=== PATIENT | male | born 1965 | race African-American/Black ===

== ENCOUNTER 2019-05-15 10:49 | Inpatient (IN) | payer BC, OTHER ==
--- NOTE | 2019-05-15 11:22 | RAD ---
PORTABLE CHEST 1 VIEW: Date: 05/15/19 Time: 1104 hours HISTORY: Chest pain and shortness of breath. FINDINGS/IMPRESSION: Comparison made with exam of 03/25/11. The heart size is borderline. There is pulmonary vascular congestion. No lobar consolidation, pneumot horaces, or pleural effusions are seen. There are degenerative changes in the spine. POS: [facility]
[2019-05-15 11:28] LABS: #Basophils 0.1 thou/uL (0.0-0.2); #Lymphocytes 2.4 thou/uL (1.20-3.40); #Monocytes 0.8 thou/uL (0.11-0.59); #Neutrophils 7.1 thou/uL (1.40-6.50); %Basophils 0.7 % (0.0-1.0); %Eosinophils 0.4 % (0.0-10.0); %Lymphocytes 23.1 % (21.0-51.0); %Monocytes 7.7 % (0.0-10.0); %Neutrophils 68.1 % (42.0-75.0); Mean Corpuscular HGB CONC 31.2 g/dL (32.0-36.0); Mean Corpuscular Hemoglobin 27.7 pg (27.0-31.0); Mean Corpuscular Volume 88.8 fL (78.0-98.0); Platelet Count 169 thou/uL (130-400); RBC Distribution Width 16.4 % (11.5-14.5); Red Blood Cell (RBC) Count 5.05 mill/uL (4.70-6.10); White Blood Cell (WBC) Count 10.4 thou/uL (4.8-10.8)
[2019-05-15 11:59] LABS: ALT (SGPT) 22 U/L (8-55); AST (SGOT) 27 U/L (5-34); Albumin 4.1 g/dL (3.5-5.0); Alkaline Phosphatase 63 U/L (40-110); Anion Gap 16 mmol/L (10-20); BUN (Urea Nitrogen) 11 mg/dL (8.4-25.7); Bilirubin, Total 0.7 mg/dL (0.2-1.2); CK (CPK) 327 U/L (30-200); Calc. Creatinine Clearance 0 mL/min (70-130); Calcium 9.9 mg/dL (7.8-10.44); Carbon Dioxide 23 mmol/L (22-29); Chloride 102 mmol/L (98-107); Estimated GFR-MDRD 74; Globulin 4.1 g/dL (2.4-3.5); Glucose 191 mg/dL (70-105); Lipase 11 U/L (8-78); Potassium 4.8 mmol/L (3.5-5.1); Protein, Total 8.2 g/dL (6.0-8.3); Sodium 136 mmol/L (136-145)
[2019-05-15 12:05] LABS: CKMB 4.6 ng/mL (0-6.6)
[2019-05-15] MEDS ORDERED: ISOVUE-370 76%-LOCM 1 ML ONE (12:13)
--- NOTE | 2019-05-15 13:32 | ULT ---
VENOUS DOPPLER ULTRASOUND OF THE LEFT LOWER EXTREMITY: Date: 05/15/19 HISTORY: Left lower extremity edema. TECHNIQUE: Beebe scale ultrasound with color flow and spectral Doppler imaging of the deep venous system of the l eft lower extremity was performed. FINDINGS: There is absence of compression with some flow due to a nonocclusive intraluminal thrombus extending from the common femoral veins down to the mid posterior tibial vein and including the deep femoral ve in. IMPRESSION: Findings are positive for deep venous thrombosis in the left lower extremity. Findings reported to Dr. Can at 1234 hours. CODE CR. POS: [facility]
[2019-05-15] MEDS ORDERED: Enoxaparin Sodium 100 MG/ML SYRINGE ONE (13:40)
--- NOTE | 2019-05-15 14:07 | CT ---
CT PULMONARY ANGIOGRAM WITH IV CONTRAST AND 3D POSTPROCESSING: Date: 05/15/19 HISTORY: Dyspnea. FINDINGS: There is good contrast opacification of the pulmonary arterial vasculature without filling defects to suggest pulmonary embolism. The thoracic aorta is opacified without aneurysm or dissection. No peric ardial effusions seen. There are moderate sized bilateral pleural effusions. Patchy infiltrates are s een in the visualized lung pérez. No pneumothoraces are noted. There are bullous changes in the left lung apex. There are degenerative changes in the spine. IMPRESSION: 1. No CT evidence of pulmonary embolism. 2. Bilateral pleural effusions. 3. Patchy bilateral lung infiltrates. POS: [facility]
[2019-05-15] MEDS ORDERED: Nitroglycerin 0.4 MG TAB (25 Tab Bottle) SL PRN ×2 (15:09→15:11)
[2019-05-15 15:57] LABS: Troponin I 0.164 ng/mL (< 0.028)
[2019-05-15 17:53] VITALS: BMI 29.4
[2019-05-15 18:43] LABS: Troponin I 0.152 ng/mL (< 0.028)
[2019-05-15] MEDS: Metoprolol Tartrate 25 MG TAB PO SCH (21:45)
[2019-05-15] MEDS: Enoxaparin Sodium 100 MG/ML SYRINGE SC SCH (21:45)
[2019-05-16 05:11] LABS: Cardiac Risk 3.6 (Less than 4.5)
--- NOTE | 2019-05-16 07:13 | HP ---
CHIEF COMPLAINT: Leg pain. HISTORY OF PRESENT ILLNESS: This is a 54-year-old gentleman, came into the ED with a complaint of left lower extremity pain. Subsequently underwent thorough evaluation by ER team and found that the patient had an acute DVT in the left lower leg. Also incidentally found that troponin was elevated borderline and possibility of non-STEMI entertained and Cardiology was consulted. The patient declined any chest pain at this point. EKG was normal. The patient was complaining of mild right-sided leg pain at this point. Denies any fever, chills. All these symptoms started yesterday evening. Denied any shortness of breath. PAST MEDICAL HISTORY: Negative. PAST SURGICAL HISTORY: Negative. SOCIAL HISTORY: Does not smoke or drink alcohol. FAMILY HISTORY: Nothing contributory. REVIEW OF SYSTEMS: CONSTITUTIONAL: No fever, no chills. HEAD AND ENT: Negative. MUSCULOSKELETAL: Negative. GENITOURINARY: Negative. NEUROLOGIC: Negative. GASTROINTESTINAL: Negative. CARDIOVASCULAR: Negative. All other systems reviewed and negative except left lower extremity pain. PHYSICAL EXAMINATION: GENERAL: Patient is alert, oriented x3, not in acute distress. VITAL SIGNS: Stable. Afebrile. HEENT: KELBY. Atraumatic, normocephalic. Dry mucous membranes. NECK: Supple. No JVD. LUNGS: Clear to auscultation bilaterally. CARDIOVASCULAR: S1, S2 heard. ABDOMEN: Soft. Bowel sounds present, nontender, nondistended. EXTREMITIES: No cyanosis. The patient has mild calf numbness present on the left lower extremity, elicited only after pressing at various areas and we would not press more because we already knew that the patient had DVT and would not want to risk for PE. CENTRAL NERVOUS SYSTEM: Nonfocal. LABORATORY DATA: Lab work performed through Emergency Department so far shows ultrasound of the lower extremities revealed evidence of left sided DVT. CT angiogram, negative for PE. Chest x-ray was normal. EKG, normal sinus rhythm. Lab work shows WBC 10.4, hemoglobin 14, platelet count 169. Chemistry shows sodium 136, potassium 4.8, chloride 102, carbon dioxide 23, BUN 11, creatinine 1.23, glucose 191, calcium 9.9, AST 27, ALT 22, creatine kinase 327, mildly elevated, troponin I 0.167, borderline elevated. CK-MB absolutely normal. Lipase 11. DIAGNOSTIC IMPRESSION: 1. Left lower extremity deep venous thrombosis, ruled out pulmonary embolism, requiring hospitalization with Lovenox. 2. Borderline elevation of troponin. Possible non-STEMI. Cardiology has been consulted. Workup for myocardial infarction has been in progress. Further planning, patient will be hospitalized in the ICU. 3. Lovenox will be weight based b.i.d. subcutaneous. 4. No mechanical SCDs were ordered because of acute deep venous thrombosis and acute pulmonary embolism risk at this point. 5. We will go ahead and start beta blockers mild dose while consulting Cardiology, Dr. Ott. 6. 2D echocardiogram. 7. Serial cardiac enzymes will be obtained. 8. Further anticoagulation will be ordered depending on the clinical course. At this juncture, patient request 12 hours of minimum anticoagulation before we can ambulate the patient. The patient will be placed on cardiac diet. The risks of anticoagulation have been discussed with the patient at length. The benefits were also discussed. The patient understands and agrees to be on blood thinners to prevent PE. Job ID: [id number]
[2019-05-16] MEDS ORDERED: Furosemide 40 MG/4 ML VIAL SLOW IVP SCH ×2 (09:00→14:00)
--- NOTE | 2019-05-16 09:37 | CON ---
DATE OF CONSULTATION: 05/16/2019 REASON FOR CONSULTATION: Elevated troponin. HISTORY OF PRESENT ILLNESS: Mr. Pastor is 54-year-old gentleman with no previous history of underlying coronary artery disease. He has a previous history of tobacco abuse. He recently presented with increased shortness of breath. He states he was having shallow breathing. This was noted on Thursday. He was seen and evaluated in the emergency room with enlarged left lower extremity. He was diagnosed with PE. CT scan of the chest was negative. Troponin was elevated at 0.164. EKG within normal limits. He had no previous history of underlying COPD or CAD. Cardiac risk factors include diabetes mellitus, tobacco abuse. No hypertension, hyperlipidemia, or family history of CAD. PAST MEDICAL HISTORY: As above. SOCIAL HISTORY: No current alcohol use. FAMILY HISTORY: Negative. PAST SURGICAL HISTORY: None. REVIEW OF SYSTEMS: Ten-point review of systems is reviewed and as above, otherwise negative. PHYSICAL EXAMINATION: GENERAL: Patient is a pleasant gentleman, who is in no acute distress. The patient appears their stated age. VITAL SIGNS: Blood pressure 140/83, pulse 96, and temperature 97.8. NEUROLOGIC: The patient is alert and oriented x3 with no focal neurologic deficits. HEENT: Sclerae without icterus. Mouth has moist mucous membranes with normal pallor. NECK: No JVD. Carotid upstroke brisk. No bruits bilaterally. LUNGS: Wheezing noted bilaterally. BACK: No scoliosis or kyphosis. CARDIAC: Regular rate and rhythm with normal S1 and S2. No S3 or S4 noted. No significant rubs, murmurs, thrills, or gallops noted throughout the precordium. PMI is not displaced. There is no parasternal heave. ABDOMEN: Soft, nontender, nondistended. No peritoneal signs present. No hepatosplenomegaly. No abnormal striae. EXTREMITIES: 2+ femoral and 2+ dorsalis pedis pulses. No cyanosis, clubbing, or edema. SKIN: No gross abnormalities. PERTINENT LABORATORY DATA: Troponin as above. Creatinine 1.23, glucose 191. Troponin downtrending. IMPRESSION: 1. Shortness of breath. 2. Deep venous thrombosis. 3. Tobacco abuse. 4. New-onset wheezing. RECOMMENDATIONS: Mr. Pastor's symptoms of increased shortness of breath may be related to new-onset asthma. He is wheezing bilaterally. He states he has no previous history of asthma. His CT scan of the chest was negative for PE. Certainly, DVT with PE can cause elevated troponin that can cause LV strain. We would recommend echo with Doppler to assess right ventricle in addition to assessment for a pulmonary hypertension. At this point, we will continue with Lovenox 1 mg/kg subcu q.12. Discontinue beta-marietta therapy due to asthma. May consider Pulmonary consult with steroids and continued neb treatments. Job ID: [id number]
--- NOTE | 2019-05-16 09:51 | CON ---
DATE OF CONSULTATION: 05/16/2019 CONSULTING PHYSICIAN: Hospitalist . REASON FOR CONSULTATION: IMCU placement. HISTORY OF PRESENT ILLNESS: The patient is a 54-year-old male, who came in yesterday with shortness of breath. He was found to have an incidental left lower extremity DVT. He underwent CT pulmonary angiogram, which was negative. However, the angiogram does demonstrate bilateral moderate-sized effusions. He has not had any chest pain. PAST MEDICAL HISTORY: 1. Diabetes mellitus. 2. Hypertension. PAST SURGICAL HISTORY: Circumcision. HOME MEDICATIONS: 1. Aspirin 81 mg daily. 2. Amlodipine 10 mg daily. 3. Metformin 850 mg b.i.d. 4. Lisinopril/hydrochlorothiazide 20/25 one tablet daily. 5. Glargine insulin 70 units nightly. 6. Atorvastatin 40 mg daily. SOCIAL HISTORY: The patient smokes a pack per day. He drinks 2 glasses of alcohol at night to help him sleep. Does not use any illicit drugs. 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 FAMILY MEDICAL HISTORY: Unremarkable. PHYSICAL EXAMINATION: VITAL SIGNS: Temperature 97.8, pulse 107, blood pressure 148/83, and O2 saturation 94%. GENERAL: He is awake and in no obvious distress. HEENT: He has a class IV Mallampati airway. NECK: No adenopathy or JVD. LUNGS: Diminished breath sounds in the bases. Clear apices. CARDIAC: S1 and S2, regular. ABDOMEN: Soft, nontender to palpation. EXTREMITIES: No clubbing or cyanosis. His left lower extremity appears somewhat increased in circumference compared to his right. LABORATORY DATA: Sodium 136, potassium 4.8, chloride 102, CO2 of 23, BUN 11, creatinine 1.2, and glucose 191. Troponin 0.152. White blood cell count 10.4, hematocrit 44.8, and platelet count 169. IMAGING DATA: His chest x-ray shows no mass, effusion, or infiltrate. CT showed no evidence of pulmonary embolism. He does have bilateral effusions. ASSESSMENT: 1. Deep venous thrombosis. 2. Bilateral effusions suggested of systolic heart failure. 3. No evidence of pulmonary embolism. PLAN: 1. Check BNP. 2. Agree with Cardiology consultation. 3. Check echocardiogram. 4. Anticoagulation. If no cardiac procedures were planned, then I would favor quickly switching him over either Xarelto or Eliquis. Job ID: [id number]
[2019-05-16] MEDS: Metoprolol Tartrate 25 MG TAB PO SCH (10:24)
[2019-05-16] MEDS: Enoxaparin Sodium 100 MG/ML SYRINGE SC SCH ×2 (10:27→21:37)
[2019-05-16] MEDS ORDERED: Insulin Regular 300 UNITS/3 ML VIAL SC PRN ×2 (10:30)
[2019-05-16] MEDS ORDERED: Ondansetron ODT 4 MG TAB PO PRN (10:30)
[2019-05-16] MEDS ORDERED: Dextrose 5% in Water 1,000 ML IV PRN (10:30)
[2019-05-16] MEDS ORDERED: Calcium Carbonate 500 MG ChewTAB PO PRN (10:30)
[2019-05-16] MEDS ORDERED: Ondansetron PF 4 MG/2 ML Vial IVP PRN (10:30)
[2019-05-16] MEDS ORDERED: Dextrose 50% Abboject 50 ML SYRINGE SLOW IVP PRN (10:30)
[2019-05-16] MEDS ORDERED: Acetaminophen 325 MG TAB PO PRN (10:30)
[2019-05-16] MEDS ORDERED: Insulin Glargine 25 UNITS in Pre-Filled Syringe 1 EACH SC SCH (10:45)
[2019-05-16] MEDS ORDERED: Insulin Glargine 15 UNITS in Pre-Filled Syringe 1 EACH SC SCH (10:45)
--- NOTE | 2019-05-16 14:11 | PDOC.HOSPP ---
- Subjective Encounter Date: 05/16/19 Encounter Time: 13:30 Subjective: Patient seen and examined for SOB/DVT. Feeling better. LLE swelling improving No new complaints. No overnight events - Objective Vital Signs & Weight: Vital Signs (12 hours) Temp Pulse Ox 05/16/19 11:12 98.5 F 05/16/19 08:00 96 05/16/19 07:43 97.8 F 05/16/19 04:00 97.5 F L Weight Weight 229 lb 6.4 oz Most Recent Monitor Data Heart Rate from ECG 104 NIBP 132/84 NIBP BP-Mean 100 Respiration from ECG 22 SpO2 97 I&O: 05/15/19 05/16/19 05/17/19 06:59 06:59 06:59 Intake Total 240 Output Total 700 Balance -460 Result Diagrams: 05/15/19 10:56 05/15/19 10:56 Additional Labs: Accuchecks 05/16/19 05/16/19 05/15/19 10:32 06:32 22:36 POC Glucose 185 H 147 H 149 H Radiology Reviewed by me: Yes (CXR - No infiltrate) EKG Reviewed by me: Yes (Tele SR) Hospitalist ROS - Review of Systems Respiratory: reports: cough, dry. denies: shortness of breath, hemoptysis, SOB with excertion, pleuritic pain, sputum, wheezing, other Cardiovascular: denies: chest pain, palpitations, orthopnea, paroxysmal noc. dyspnea, edema, light headedness, other Gastrointestinal: denies: nausea, vomiting, abdominal pain, diarrhea, constipation, melena, hematochezia, other - Medication Medications: Active Medications Generic Name Dose Route Start Last Admin Trade Name Freq PRN Reason Stop Dose Admin Enoxaparin Sodium 100 mg 05/15/19 21:00 05/16/19 10:27 Lovenox SC 100 mg 0900,2100 MIGUE Administration - Exam General Appearance: NAD Neck: supple, no JVD Heart: RRR, no gallops, no rubs Heart - other findings: no heaves/pulsations Respiratory: no rales, no ronchi, normal chest expansion, rhonchi Gastrointestinal: soft, non-tender, non-distended, normal bowel sounds Extremities: no cyanosis, no clubbing, 1+ LE edema (LLE) Neurological: no focal deficits Psychiatric: normal affect, A&O x 3 Hosp A/P - Plan out of bed/ambulate, DVT proph w/lovenox Acute CHF Exacerbation LLE DVT Elevated troponins due to ?demand ischemia/Type 2 HI DM2 HTN HLD Mild intermittent Asthma Tobacco dep Alcohol dep CKD 2 PLAN: IV diuresis Started on Lovenox Await Echo Add Thiamine/Folic acid/MVM Resume Lantus Add Moderate SS Cont other meds Transfer to Tele
[2019-05-16] MEDS ORDERED: Insulin Glargine 20 UNITS in Pre-Filled Syringe 1 EACH SC SCH ×2 (15:00→21:00)
[2019-05-16] MEDS ORDERED: Insulin Glargine 50 UNITS in Pre-Filled Syringe 1 EACH SC SCH (21:00)
[2019-05-16] MEDS: Lisinopril 5 MG TAB PO SCH (21:36)
[2019-05-16] MEDS: Famotidine 20 MG TAB PO SCH (21:37)
[2019-05-16] MEDS: Senokot S 8.6-50 MG TAB PO SCH (21:38)
[2019-05-16] MEDS: Atorvastatin Calcium 40 MG TAB PO SCH (21:44)
[2019-05-17 03:53] LABS: #Basophils 0.1 thou/uL (0.0-0.2); #Eosinphils 0.1 thou/uL (0.0-0.7); #Lymphocytes 2.7 thou/uL (1.20-3.40); #Monocytes 0.9 thou/uL (0.11-0.59); %Basophils 0.7 % (0.0-1.0); %Eosinophils 1.6 % (0.0-10.0); %Lymphocytes 30.4 % (21.0-51.0); %Monocytes 10.2 % (0.0-10.0); %Neutrophils 57.2 % (42.0-75.0); Hemoglobin 12.5 g/dL (14.0-18.0); Mean Corpuscular HGB CONC 33.1 g/dL (32.0-36.0); Mean Corpuscular Hemoglobin 29.2 pg (27.0-31.0); Mean Corpuscular Volume 88.1 fL (78.0-98.0); Mean Platelet Volume 9.8 fL (7.4-10.4); Platelet Count 158 thou/uL (130-400); RBC Distribution Width 16.2 % (11.5-14.5); Red Blood Cell (RBC) Count 4.28 mill/uL (4.70-6.10); White Blood Cell (WBC) Count 8.7 thou/uL (4.8-10.8)
[2019-05-17 04:05] LABS: ALT (SGPT) 16 U/L (8-55); AST (SGOT) 14 U/L (5-34); Albumin 3.2 g/dL (3.5-5.0); Alkaline Phosphatase 47 U/L (40-110); Anion Gap 9 mmol/L (10-20); BUN (Urea Nitrogen) 17 mg/dL (8.4-25.7); Bilirubin, Total 0.5 mg/dL (0.2-1.2); Calc. Creatinine Clearance 106 mL/min (70-130); Calcium 9.1 mg/dL (7.8-10.44); Carbon Dioxide 29 mmol/L (22-29); Chloride 103 mmol/L (98-107); Estimated GFR-MDRD 81; Globulin 3.1 g/dL (2.4-3.5); Glucose 146 mg/dL (70-105); Magnesium 1.8 mg/dL (1.6-2.6); Potassium 3.6 mmol/L (3.5-5.1); Protein, Total 6.3 g/dL (6.0-8.3); Sodium 137 mmol/L (136-145)
[2019-05-17] MEDS: Furosemide 20 MG/2 ML VIAL SLOW IVP SCH ×2 (05:23→13:48)
[2019-05-17] MEDS: Multivit, Therapeutic 1 TAB PO SCH (08:30)
[2019-05-17] MEDS: Folic Acid 1 MG TAB PO SCH (08:30)
[2019-05-17] MEDS: Lisinopril 5 MG TAB PO SCH ×2 (08:31→20:29)
[2019-05-17] MEDS: Senokot S 8.6-50 MG TAB PO SCH ×2 (08:31→20:29)
[2019-05-17] MEDS: Aspirin 81 mg Enteric Coated Tablet PO SCH (08:31)
[2019-05-17] MEDS: Famotidine 20 MG TAB PO SCH ×2 (08:31→20:29)
[2019-05-17] MEDS: Carvedilol 3.125 MG TAB PO SCH ×2 (08:31→20:29)
[2019-05-17] MEDS: Enoxaparin Sodium 100 MG/ML SYRINGE SC SCH ×2 (08:32→20:28)
[2019-05-17] MEDS: Thiamine 100 MG TAB PO SCH (08:32)
[2019-05-17] MEDS ORDERED: Lisinopril 2.5 MG TAB PO SCH (09:00)
[2019-05-17] MEDS ORDERED: Carvedilol 6.25 MG TAB PO SCH (09:00)
[2019-05-17] MEDS ORDERED: Aspirin 81 mg Enteric Coated Tablet PO SCH (09:00)
--- NOTE | 2019-05-17 09:38 | PRG ---
DATE OF SERVICE: 05/17/2019 SUBJECTIVE: The patient feels better this morning. He had no acute complaints and he wants to go home. OBJECTIVE: VITAL SIGNS: His temperature 97.4, pulse 79, and blood pressure 117/81. HEENT: Unremarkable. NECK: No adenopathy or JVD. CHEST: Clear. CARDIAC: S1-S2. Regular. ABDOMEN: Soft. EXTREMITIES: No edema. LABORATORY DATA: Sodium 137, potassium 3.6, chloride 103, CO2 of 29, BUN 17, creatinine 1.1, and glucose 146. White blood cell count 8.7, hematocrit 37.7, and platelet count 158. His BNP level was 1248. His echo shows an EF of 20% to 25%. ASSESSMENT: 1. Cardiomyopathy. 2. Congestive heart failure. 3. Previous tobacco abuse. PLAN: The patient is currently on diuretics and has responded well. He will probably require further heart studies. From Pulmonary standpoint, he needs PFTs, but this can be done as an outpatient after discharge. Job ID: [id number]
--- NOTE | 2019-05-17 10:34 | RAD ---
Exam: Chest one view HISTORY:Heart failure Comparison: 05/15/2019 FINDINGS: Lungs: Interstitial prominence is again seen throughout each lung Cardiac silhouette:Stable prominence Pulmonary vessels: Pulmonary vascular congestion remains Pleural Spaces: Clear Pneumothorax: None Osseous abnormalities: None of acuity. IMPRESSION: Persistent findings of decompensated CHF, with fluid overload.
--- NOTE | 2019-05-17 13:38 | PRG ---
DATE OF SERVICE: 05/17/2019 SUBJECTIVE: Mr. Pastor is doing better. He states he is breathing much better. No current complaints. OBJECTIVE: GENERAL: The patient is a pleasant 54-year-old, who is in no acute distress. The patient appears their stated age. VITAL SIGNS: Blood pressure 120/90, pulse 78, and temperature afebrile. NEUROLOGIC: The patient is alert and oriented x3 with no focal neurologic deficits. HEENT: Sclerae without icterus. Mouth has moist mucous membranes with normal pallor. NECK: No JVD. Carotid upstroke brisk. No bruits bilaterally. LUNGS: Clear to auscultation with unlabored respirations. BACK: No scoliosis or kyphosis. CARDIAC: Regular rate and rhythm with normal S1 and S2. No S3 or S4 noted. No significant rubs, murmurs, thrills, or gallops noted throughout the precordium. PMI is not displaced. There is no parasternal heave. ABDOMEN: Soft, nontender, nondistended. No peritoneal signs present. No hepatosplenomegaly. No abnormal striae. EXTREMITIES: 2+ femoral and 2+ dorsalis pedis pulses. No cyanosis, clubbing, or edema. SKIN: No gross abnormalities. PERTINENT LABORATORY DATA: Hemoglobin 12.5. Creatinine 1.14. IMPRESSION: 1. New onset cardiomyopathy of unknown etiology. 2. Tobacco abuse. 3. Recent deep vein thrombosis. RECOMMENDATIONS: We would like to carefully disposition the etiology to Mr. Pastor's underlying cardiomyopathy. I discussed proceeding with coronary angiography. He has reservations. We will then proceed with a noninvasive stress study tomorrow to assess for any areas of ischemia. If no ischemia or scar, we would likely continue to treat medically. He is currently on amlodipine, aspirin, atorvastatin, and carvedilol. Continue with lisinopril. Blood pressure and heart rate appear stable. May increase Coreg to 6.25 b.i.d. We would also recommend LifeVest. He is amenable. Job ID: [id number]
[2019-05-17] MEDS ORDERED: FLU VACC QS2019-20(6MOS UP)/PF 60 MCG/0.5 ML SYRINGE IM ONE (17:00)
[2019-05-17] MEDS: metFORMIN 850 MG TAB PO SCH (17:08)
[2019-05-17] MEDS: Atorvastatin Calcium 40 MG TAB PO SCH (20:29)
--- NOTE | 2019-05-17 20:35 | PDOC.HOSPP ---
- Subjective Encounter Date: 05/17/19 Encounter Time: 14:30 Subjective: Patient seen and examined for CHF exacerbation. No CP. SOB improving. No other complaints. No overnight events - Objective Vital Signs & Weight: Vital Signs (12 hours) Temp Pulse Pulse Pulse Resp BP BP 05/17/19 20:29 82 129/84 05/17/19 15:50 98.8 F 91 18 05/17/19 13:00 05/17/19 11:42 97.9 F 05/17/19 09:06 85 87 140/90 BP BP Pulse Ox Pulse Ox Pulse Ox 05/17/19 20:29 05/17/19 15:50 136/77 95 05/17/19 13:00 100 05/17/19 11:42 05/17/19 09:06 136/90 99 99 Weight Weight 218 lb 6.4 oz Most Recent Monitor Data Heart Rate from ECG 84 NIBP 116/79 NIBP BP-Mean 91 Respiration from ECG 17 SpO2 99 I&O: 05/16/19 05/17/19 05/18/19 06:59 06:59 06:59 Intake Total 240 920 750 Output Total 700 1500 1000 Balance -460 -580 -250 Result Diagrams: 05/17/19 03:18 05/17/19 03:18 Additional Labs: Accuchecks 05/17/19 05/17/19 05/17/19 20:19 16:47 10:44 POC Glucose 135 H 143 H 106 05/17/19 05/16/19 05:08 20:35 POC Glucose 126 H 217 H EKG Reviewed by me: Yes (Tele SR) Hospitalist ROS - Review of Systems Constitutional: denies: fever, chills, sweats, weakness, malaise, other Gastrointestinal: denies: nausea, vomiting, abdominal pain, diarrhea, constipation, melena, hematochezia, other - Medication Medications: Active Medications Generic Name Dose Route Start Last Admin Trade Name Freq PRN Reason Stop Dose Admin Aspirin 81 mg 05/17/19 09:00 05/17/19 08:31 Ecotrin PO 81 mg DAILY MIGUE Administration Atorvastatin Calcium 40 mg 05/16/19 21:00 05/17/19 20:29 Lipitor PO 40 mg HS MIGUE Administration Carvedilol 3.125 mg 05/17/19 09:00 05/17/19 20:29 Coreg PO 3.125 mg BID MIGUE Administration Enoxaparin Sodium 100 mg 05/15/19 21:00 05/17/19 20:28 Lovenox SC 100 mg 0900,2100 MIGUE Administration Famotidine 20 mg 05/16/19 21:00 05/17/19 20:29 Pepcid PO 20 mg BID MIGUE Administration Folic Acid 1 mg 05/17/19 09:00 05/17/19 08:30 Folvite PO 1 mg DAILY MIGUE Administration Furosemide 20 mg 05/17/19 06:00 05/17/19 13:48 Lasix SLOW IVP 20 mg 0600,1400 MIGUE Administration Lisinopril 5 mg 05/16/19 21:00 05/17/19 20:29 Zestril PO 5 mg BID MIGUE Administration Metformin HCl 850 mg 05/17/19 17:00 05/17/19 17:08 Glucophage PO 850 mg BID-WM MIGUE Administration Multivitamins 1 tab 05/17/19 09:00 05/17/19 08:30 Theragran PO 1 tab DAILY MIGUE Administration Senna/Docusate Sodium 1 tab 05/16/19 21:00 05/17/19 20:29 Senokot S PO Not Given BID MIGUE Sodium Chloride 10 ml 05/16/19 10:30 05/17/19 08:30 Flush - Normal Saline IVF 10 ml PRN PRN Administration Saline Flush Thiamine HCl 100 mg 05/17/19 09:00 05/17/19 08:32 Thiamine PO 100 mg DAILY MIGUE Administration - Exam General Appearance: NAD Heart: RRR, no gallops, no rubs Respiratory: rales, rhonchi Gastrointestinal: soft, non-tender, non-distended, normal bowel sounds Extremities: 1+ LE edema Hosp A/P - Plan DVT proph w/lovenox Acute systolic/diastolic HF Exacerbation LLE DVT - on Lovenox Elevated troponins due to ?demand ischemia/Type 2 ID DM2 HTN HLD Mild intermittent Asthma Tobacco dep Alcohol dep CKD 2 PLAN: Cont IV diuresis/ACEI/BB NPO past MN for stress test 20 units of Lantus tonight Cont sliding scale Cont other meds BMP in AM
[2019-05-17] MEDS ORDERED: Insulin Glargine 20 UNITS in Pre-Filled Syringe 1 EACH SC SCH (21:00)
[2019-05-18 05:32] LABS: Hemoglobin 12.3 g/dL (14.0-18.0); Platelet Count 174 thou/uL (130-400)
[2019-05-18] MEDS: Furosemide 20 MG/2 ML VIAL SLOW IVP SCH ×2 (05:40→14:40)
[2019-05-18 06:00] LABS: Anion Gap 14 mmol/L (10-20); BUN (Urea Nitrogen) 17 mg/dL (8.4-25.7); Calc. Creatinine Clearance 93 mL/min (70-130); Carbon Dioxide 25 mmol/L (22-29); Chloride 103 mmol/L (98-107); Estimated GFR-MDRD 73; Glucose 121 mg/dL (70-105); Magnesium 1.8 mg/dL (1.6-2.6); Potassium 3.4 mmol/L (3.5-5.1); Sodium 139 mmol/L (136-145)
[2019-05-18] MEDS ORDERED: Amlodipine 10 MG TAB PO SCH (09:00)
[2019-05-18] MEDS ORDERED: Potassium Chloride 20 MEQ TAB PO SCH ×2 (09:00→17:00)
[2019-05-18] MEDS ORDERED: Lisinopril/Hydrochlorothiazide 20/25 mg Tablet PO SCH (09:00)
[2019-05-18] MEDS: metFORMIN 850 MG TAB PO SCH ×2 (10:45→18:14)
[2019-05-18] MEDS: Aspirin 81 mg Enteric Coated Tablet PO SCH (10:45)
[2019-05-18] MEDS: Folic Acid 1 MG TAB PO SCH (10:45)
[2019-05-18] MEDS: Famotidine 20 MG TAB PO SCH ×2 (10:45→19:34)
[2019-05-18] MEDS: Carvedilol 3.125 MG TAB PO SCH ×2 (10:45→19:34)
[2019-05-18] MEDS: Lisinopril 5 MG TAB PO SCH ×2 (10:46→19:34)
[2019-05-18] MEDS: Multivit, Therapeutic 1 TAB PO SCH (10:46)
[2019-05-18] MEDS: Senokot S 8.6-50 MG TAB PO SCH ×2 (10:46→19:35)
[2019-05-18] MEDS: Enoxaparin Sodium 100 MG/ML SYRINGE SC SCH ×2 (10:46→19:34)
[2019-05-18] MEDS: Thiamine 100 MG TAB PO SCH (10:46)
--- NOTE | 2019-05-18 11:36 | PRG ---
DATE OF SERVICE: 05/18/2019 SUBJECTIVE: The patient is doing better. He is up walking around. He completed a stress test this morning. The results of that are not available at the current time. OBJECTIVE: VITAL SIGNS: His temperature is 98.2, pulse 80, blood pressure 111/65, and O2 saturations 100% on room air. HEENT: Unremarkable. NECK: No adenopathy or JVD. CHEST: Clear to auscultation. CARDIAC: S1-S2 regular. ABDOMEN: Soft. EXTREMITIES: No edema. ASSESSMENT: 1. Cardiomyopathy with congestive heart failure. 2. Deep venous thrombosis. 3. Previous tobacco abuse and alcohol abuse. PLAN: From my standpoint, he can be switched over to oral novel anticoagulants. Duration of therapy should be about 6 months before considering stopping. I would coordinate this with Cardiology in the case other procedures might be needed. From Pulmonary standpoint, he is stable for discharge, but again he may need further cardiac testing before discharge depending on the outcome of the stress test from today. Job ID: [id number]
--- NOTE | 2019-05-18 12:03 | NM ---
MYOCARDIAL PERFUSION SCAN: The patient was given 10 mCi of technetium sestamibi for rest imaging and 33 mCi for stress imaging. Patient was stressed according to Lexiscan protocol. INDICATION: Cardiomyopathy. FINDINGS: There is left ventricular dilatation. There is a fixed apical and inferior wall defect. Symmetric dec reased activity in the septum and the anterior septal region. No evidence of reversible ischemia. Wall motion shows left ventricular dilatation with diffuse hypokinesis with dyskinesis. Ejection frac tion recorded at 19%. IMPRESSION: Large fixed defects involving apex, inferior wall, and septum, without evidence of reversible ischemi a. Diffuse hypokinesis. POS: [facility]
[2019-05-18] MEDS ORDERED: Regadenoson 0.4 MG/5 ML SYRINGE ONE (13:13)
[2019-05-18] MEDS ORDERED: Communication Order-Pharmacy FS SCH (19:00)
[2019-05-18] MEDS: Atorvastatin Calcium 40 MG TAB PO SCH (19:34)
--- NOTE | 2019-05-18 21:50 | PDOC.CPN ---
- Subjective Date: 05/18/19 Time: 15:30 Interval history: No overnight events. No complaints. - Review of Systems General: denies: fever/chills, weight/appetite/sleep changes, night sweats, fatigue Respiratory: denies: cough, congestion, shortness of breath, exercise intolerance Cardiovascular: denies: chest pain, palpitation, edema, paroxysmal nocturnal dyspnea, orthopnea Gastrointestinal: denies: nausea, vomiting, diarrhea, constipation, abd pain, GI bleeding Musculoskeletal: denies: pain, tenderness, stiffness, swelling, arthritis/ arthralgias Neurological: denies: numbness, syncope, seizure, weakness - Objective Allergies/Adverse Reactions: Allergies Allergy/AdvReac Type Severity Reaction Status Date / Time No Known Allergies Allergy Verified 05/15/19 17:42 Visit Medications: Current Medications Acetaminophen (Tylenol) 650 mg PO Q4H PRN PRN Reason: Headache/Fever/Mild Pain (1-3) Albuterol/Ipratropium (Duoneb) 3 ml NEB [id number] PRN PRN Reason: SOB &/or Wheezing Aspirin (Ecotrin) 81 mg PO DAILY [facility] Last Admin: 05/18/19 10:45 Dose: 81 mg Atorvastatin Calcium (Lipitor) 40 mg PO HS [facility] Last Admin: 05/18/19 19:34 Dose: 40 mg Calcium Carbonate (Tums) 1,000 mg PO Q4H PRN PRN Reason: Heartburn or Indigestion Carvedilol (Coreg) 3.125 mg PO BID [facility] Last Admin: 05/18/19 19:34 Dose: 3.125 mg Dextrose/Water (Dextrose 50%) 25 gm SLOW IVP PRN PRN PRN Reason: Hypoglycemia Enoxaparin Sodium (Lovenox) 100 mg SC 0900,2100 [facility] Stop: 05/18/19 23:59 Last Admin: 05/18/19 19:34 Dose: 100 mg Famotidine (Pepcid) 20 mg PO BID [facility] Last Admin: 05/18/19 19:34 Dose: 20 mg Folic Acid (Folvite) 1 mg PO DAILY [facility] Last Admin: 05/18/19 10:45 Dose: 1 mg Furosemide (Lasix) 20 mg SLOW IVP 0600,1400 [facility] Last Admin: 05/18/19 14:40 Dose: 20 mg Glucagon (Glucagon) 1 mg IM PRN PRN PRN Reason: Hypoglycemia Dextrose/Water (D5w) 1,000 mls @ 0 mls/hr IV .Q0M PRN PRN Reason: Hypoglycemia Insulin Glargine 50 units/ (Miscellaneous Medication) 0.5 mls @ 0 mls/hr SC HS [facility] Sodium Chloride (Normal Saline 0.9%) 1,000 mls @ 100 mls/hr IV .Q10H [facility] Insulin Human Regular (Humulin R) 0 units SC .MODERATE SLIDING SC PRN PRN Reason: Moderate Correctional Scale Insulin Human Regular (Humulin R) 0 units SC .BEDTIME SLIDING SC PRN PRN Reason: Bedtime Correctional Scale Lisinopril (Zestril) 5 mg PO BID [facility] Last Admin: 05/18/19 19:34 Dose: 5 mg Metformin HCl (Glucophage) 850 mg PO BID[facility] Last Admin: 05/18/19 18:14 Dose: 850 mg Miscellaneous Information (Communication Order-Pharmacy) 0 each FS ONE [facility] Stop: 05/18/19 23:59 Multivitamins (Theragran) 1 tab PO DAILY [facility] Last Admin: 05/18/19 10:46 Dose: 1 tab Nitroglycerin (Nitrostat) 0.4 mg SL Q5MIN PRN PRN Reason: Chest Pain Ondansetron HCl (Zofran Odt) 4 mg PO Q6H PRN PRN Reason: Nausea/Vomiting Ondansetron HCl (Zofran) 4 mg IVP Q6H PRN PRN Reason: Nausea/Vomiting Senna/Docusate Sodium (Senokot S) 1 tab PO BID [facility] Last Admin: 05/18/19 19:35 Dose: Not Given Sodium Chloride (Flush - Normal Saline) 10 ml IVF PRN PRN PRN Reason: Saline Flush Last Admin: 05/17/19 08:30 Dose: 10 ml Thiamine HCl (Thiamine) 100 mg PO DAILY [facility] Last Admin: 05/18/19 10:46 Dose: 100 mg Vital Signs & Weight: Vital Signs Temp Pulse Resp BP BP Pulse Ox 05/18/19 19:34 91 129/71 05/18/19 17:46 97.4 F L 81 20 122/78 97 05/18/19 11:54 97.6 F 92 20 112/53 L 99 05/18/19 10:46 80 Weight 215 lb 3.2 oz - Physical Exam General: alert & oriented x3, appears well HEENT: mucus membranes moist Neck: supple neck Cardiac: regular rate and rhythm, regular rate Lungs: clear to auscultation, normal breath sounds Neuro: grossly intact Abdomen: unremarkable, soft Extremities: no cyanosis Skin: clear Musculoskeletal: normal range of motion - Labs Result Diagrams: 05/18/19 04:50 05/18/19 04:50 Troponin/CKMB CK-MB (CK-2) 4.6 ng/mL (0-6.6) 05/15/19 10:56 Troponin I 0.152 ng/mL (< 0.028) H 05/15/19 18:11 - Telemetry Sinus rhythms and dysrhythmias: sinus rhythm - Assessment/Plan Assessment/Plan: 1. New-onset cardiomyopathy 2. Acute systolic CHF 3. Abnormal stress CL 4. DM 5. DVT Discussed options for further treatment at length including medical mgmt vs diagnostic angio and risks. He wishes to proceed with [facility]. DIscussed possible need for stent placement and possible need for plavix and asa in addition to ACT for up to a year. He understands and wants to proceed. Will plan for AM.
--- NOTE | 2019-05-18 22:33 | PDOC.HOSPP ---
- Subjective Encounter Date: 05/18/19 Encounter Time: 14:00 Subjective: Patient seen and examined for new onset CHF. No CP. SOB improving. No new complaints. No overnight events - Objective Vital Signs & Weight: Vital Signs (12 hours) Temp Pulse Resp BP BP Pulse Ox 05/18/19 19:34 91 129/71 05/18/19 17:46 97.4 F L 81 20 122/78 97 05/18/19 11:54 97.6 F 92 20 112/53 L 99 05/18/19 10:46 80 Weight Weight 215 lb 3.2 oz Most Recent Monitor Data Heart Rate from ECG 84 NIBP 116/79 NIBP BP-Mean 91 Respiration from ECG 17 SpO2 99 I&O: 05/17/19 05/18/19 05/19/19 06:59 06:59 06:59 Intake Total 920 1100 820 Output Total 1500 1004 1375 Balance -580 96 -555 Result Diagrams: 05/18/19 04:50 05/18/19 04:50 Additional Labs: Accuchecks 05/18/19 05/18/19 05/18/19 20:23 15:36 11:29 POC Glucose 162 H 111 H 168 H 05/18/19 05:46 POC Glucose 119 H EKG Reviewed by me: Yes (Tele SR) Hospitalist ROS - Review of Systems Respiratory: denies: cough, dry, shortness of breath, hemoptysis, SOB with excertion, pleuritic pain, sputum, wheezing, other Cardiovascular: denies: chest pain, palpitations, orthopnea, paroxysmal noc. dyspnea, edema, light headedness, other - Medication Medications: Active Medications Generic Name Dose Route Start Last Admin Trade Name Freq PRN Reason Stop Dose Admin Aspirin 81 mg 05/17/19 09:00 05/18/19 10:45 Ecotrin PO 81 mg DAILY [facility] Administration Atorvastatin Calcium 40 mg 05/16/19 21:00 05/18/19 19:34 Lipitor PO 40 mg HS [facility] Administration Carvedilol 3.125 mg 05/17/19 09:00 05/18/19 19:34 Coreg PO 3.125 mg BID [facility] Administration Enoxaparin Sodium 100 mg 05/15/19 21:00 05/18/19 19:34 Lovenox SC 05/18/19 23:59 100 mg 0900,2100 [facility] Administration Famotidine 20 mg 05/16/19 21:00 05/18/19 19:34 Pepcid PO 20 mg BID [facility] Administration Folic Acid 1 mg 05/17/19 09:00 05/18/19 10:45 Folvite PO 1 mg DAILY [facility] Administration Furosemide 20 mg 05/17/19 06:00 05/18/19 14:40 Lasix SLOW IVP 20 mg 0600,1400 [facility] Administration Lisinopril 5 mg 05/16/19 21:00 05/18/19 19:34 Zestril PO 5 mg BID [facility] Administration Metformin HCl 850 mg 05/17/19 17:00 05/18/19 18:14 Glucophage PO 850 mg BID-WM [facility] Administration Multivitamins 1 tab 05/17/19 09:00 05/18/19 10:46 Theragran PO 1 tab DAILY [facility] Administration Senna/Docusate Sodium 1 tab 05/16/19 21:00 05/18/19 19:35 Senokot S PO Not Given BID [facility] Sodium Chloride 10 ml 05/16/19 10:30 05/17/19 08:30 Flush - Normal Saline IVF 10 ml PRN PRN Administration Saline Flush Thiamine HCl 100 mg 05/17/19 09:00 05/18/19 10:46 Thiamine PO 100 mg DAILY [facility] Administration - Exam General Appearance: NAD Neck: supple, no JVD Heart: RRR, no gallops Respiratory: CTAB, no rales Gastrointestinal: soft, non-tender, normal bowel sounds Extremities: no edema Hosp A/P - Plan DVT proph w/SCDs Acute systolic/diastolic HF Exacerbation LLE DVT - on Lovenox Elevated troponins due to ?demand ischemia/Type 2 UT Abn Stress test DM2 HTN HLD Mild intermittent Asthma Tobacco dep Alcohol dep CKD 2 PLAN: DC IV diuresis Cont ACEI/BB Await Cardio input on Stress test Cont sliding scale Cont other meds BMP in AM
[2019-05-18] MEDS: Insulin Glargine 50 UNITS in Pre-Filled Syringe 1 EACH SC SCH (23:22)
[2019-05-19 04:44] LABS: #Basophils 0.1 thou/uL (0.0-0.2); #Eosinphils 0.2 thou/uL (0.0-0.7); #Lymphocytes 2.9 thou/uL (1.20-3.40); #Monocytes 0.9 thou/uL (0.11-0.59); #Neutrophils 4.8 thou/uL (1.40-6.50); %Basophils 0.7 % (0.0-1.0); %Eosinophils 2.5 % (0.0-10.0); %Lymphocytes 32.7 % (21.0-51.0); %Monocytes 10.5 % (0.0-10.0); %Neutrophils 53.6 % (42.0-75.0); Hemoglobin 12.7 g/dL (14.0-18.0); Mean Corpuscular HGB CONC 32.1 g/dL (32.0-36.0); Mean Corpuscular Hemoglobin 28.5 pg (27.0-31.0); Mean Corpuscular Volume 88.9 fL (78.0-98.0); Mean Platelet Volume 9.9 fL (7.4-10.4); Platelet Count 180 thou/uL (130-400); RBC Distribution Width 16.6 % (11.5-14.5); Red Blood Cell (RBC) Count 4.46 mill/uL (4.70-6.10)
[2019-05-19 05:01] LABS: Anion Gap 13 mmol/L (10-20); BUN (Urea Nitrogen) 21 mg/dL (8.4-25.7); Calc. Creatinine Clearance 75 mL/min (70-130); Calcium 9.5 mg/dL (7.8-10.44); Carbon Dioxide 30 mmol/L (22-29); Chloride 103 mmol/L (98-107); Estimated GFR-MDRD 58; Glucose 140 mg/dL (70-105); Potassium 3.6 mmol/L (3.5-5.1); Sodium 142 mmol/L (136-145)
[2019-05-19] MEDS: Carvedilol 3.125 MG TAB PO SCH ×2 (05:30→20:32)
[2019-05-19] MEDS: Famotidine 20 MG TAB PO SCH ×2 (05:30→20:32)
[2019-05-19] MEDS: Aspirin 81 mg Enteric Coated Tablet PO SCH (05:30)
[2019-05-19] MEDS: Multivit, Therapeutic 1 TAB PO SCH (05:31)
[2019-05-19] MEDS: Lisinopril 5 MG TAB PO SCH ×2 (05:31→20:32)
[2019-05-19] MEDS: Folic Acid 1 MG TAB PO SCH (05:31)
[2019-05-19] MEDS: Thiamine 100 MG TAB PO SCH (05:31)
[2019-05-19] MEDS: Senokot S 8.6-50 MG TAB PO SCH ×2 (05:32→20:32)
[2019-05-19] MEDS ORDERED: Sodium Chloride 0.9% 1,000 ML IV SCH ×2 (06:00→14:00)
[2019-05-19] MEDS ORDERED: Iopamidol 370 76% 100 ML VIAL ONE (10:50)
[2019-05-19 11:53] LABS: Anion Gap 12 mmol/L (10-20); BUN (Urea Nitrogen) 21 mg/dL (8.4-25.7); Calc. Creatinine Clearance 78 mL/min (70-130); Calcium 9.3 mg/dL (7.8-10.44); Carbon Dioxide 29 mmol/L (22-29); Chloride 103 mmol/L (98-107); Estimated GFR-MDRD 61; Glucose 123 mg/dL (70-105); Potassium 3.9 mmol/L (3.5-5.1); Sodium 140 mmol/L (136-145)
[2019-05-19] MEDS ORDERED: Lidocaine 1% (PF) 30 ML VIAL ONE (11:55)
[2019-05-19] MEDS ORDERED: Nitroglycerin 100MG/250ML BOT 250 ML ONE (11:56)
[2019-05-19] MEDS ORDERED: Fentanyl 100 MCG/2 ML VIAL ONE (11:56)
[2019-05-19] MEDS ORDERED: Midazolam HCl 2 mg/2 ml Vial ONE (11:56)
[2019-05-19] MEDS ORDERED: Verapamil 5 MG/2 ML VIAL ONE (11:56)
[2019-05-19] MEDS ORDERED: Heparin 10,000 UNITS/1 ML VIAL ONE (11:56)
[2019-05-19] MEDS ORDERED: Sodium Chloride 0.9% 200 ML IV PRN (13:47)
[2019-05-19] MEDS ORDERED: Nitroglycerin 0.4 MG TAB (25 Tab Bottle) SL PRN (13:47)
[2019-05-19] MEDS ORDERED: Acetaminophen/Codeine 30-300mg Tablet PO PRN ×2 (13:47)
[2019-05-19] MEDS: Insulin Glargine 50 UNITS in Pre-Filled Syringe 1 EACH SC SCH (20:32)
[2019-05-19] MEDS: Atorvastatin Calcium 40 MG TAB PO SCH (20:32)
--- NOTE | 2019-05-19 21:50 | CON ---
DATE OF CONSULTATION: 05/19/2019 HISTORY OF PRESENT ILLNESS: Mr. Pastor is a 54-year-old gentleman, who presented through the emergency department with shortness of breath. He has never had shortness of breath like this before. He said he could not lie flat in bed and spent a night in the recliner. He had no chest pain. He has never had chest pain, shortness of breath, or myocardial infarction diagnosis. He presented to the emergency department and was admitted. He has been found on vascular ultrasound to have left lower extremity deep venous thrombosis. CT angiogram of the chest showed no pulmonary embolism. He did have bilateral infiltrates. His troponin at the time of admission was 0.167, which was his peak. Echocardiogram was performed showing a severely depressed global hypokinesis. He had an ejection fraction of approximately 20%. Followup nuclear medicine study showed scar involving the anterior apical, septal, and inferior gonzalez. Ejection fraction was 19%. He was taken for cardiac catheterization today. He has an occluded right coronary artery. There is a bypassable target on the inferior wall of the heart, which is involved with scar. He has near-occlusion of the LAD-diagonal system with [id number] filling. He also has significant circumflex disease. Bypassable targets include LAD, diagonal, OM, and a target on the right. Of concern is his low ejection fraction and scar on the nuclear scan. The patient says he feels much better since admission. He has diuresed from 230 pounds down to 213 pounds. He is currently resting comfortably on the telemetry unit without chest pain or shortness of breath, on no oxygen. PAST MEDICAL HISTORY: 1. Diabetes mellitus. 2. Hypertension. 3. History of previous tobacco abuse. PAST SURGICAL HISTORY: Circumcision. MEDICATIONS: At home, 1. Aspirin 81 mg daily. 2. Amlodipine 10 mg daily. 3. Metformin 850 mg b.i.d. 4. Lisinopril/hydrochlorothiazide 20/25 daily. 5. Lantus 70 units at bedtime. 6. Atorvastatin 40 mg at bedtime. ALLERGIES: NONE. 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 PHYSICAL EXAMINATION: HEENT: Sclerae nonicteric. Pupils are equal and round bilaterally. NECK: Supple without bruit. CHEST: Clear bilaterally. There is an occasional wheeze-the patient presented with significant wheezing through the emergency department. HEART: Rhythm is regular. There are no murmurs. ABDOMEN: Soft. EXTREMITIES: He has no edema. VASCULAR: There are palpable carotid, radial, and femoral pulses bilaterally. LABORATORY DATA: Of note, his BNP was 1250 at admission. His troponin was 0.164 at admission. Sugars have been between 150 and 200 for the most part since admission. Most recent potassium is 3.4, creatinine is 1.24, hemoglobin 12.7, and platelet count 180. ASSESSMENT AND PLAN: This is a very pleasant 54-year-old gentleman, who has presented with a left-sided deep venous thrombosis and coronary artery disease, congestive heart failure, status post [id number] myocardial infarction with severely depressed left ventricular ejection fraction. He and I had a long discussion regarding his situation. He needs initial medical treatment, which may also in addition to his current medical regimen include Entresto. I would follow him up with an echocardiogram in couple of months and see where his ventricle sits at that point. He does have bypassable targets, but my concern is that the targets are involved in areas of scar and result from bypass may not significantly improve his ejection fraction or longevity. Job ID: [id number]
--- NOTE | 2019-05-19 23:14 | PDOC.HOSPP ---
- Subjective Encounter Date: 05/19/19 Encounter Time: 16:00 Subjective: Patient seen and examined for CHF/CAD/DVT. No CP. No new focal deficits. No new complaints. No overnight events - Objective Vital Signs & Weight: Vital Signs (12 hours) Temp Pulse Resp BP BP Pulse Ox 05/19/19 20:32 75 134/79 05/19/19 19:12 98.5 F 75 16 134/79 98 05/19/19 15:07 98.1 F 72 14 130/79 100 Weight Weight 213 lb 3.2 oz Most Recent Monitor Data Heart Rate from ECG 84 NIBP 116/79 NIBP BP-Mean 91 Respiration from ECG 17 SpO2 99 I&O: 05/18/19 05/19/19 05/20/19 06:59 06:59 06:59 Intake Total 1100 1542 1010 Output Total 1004 2375 Balance 96 -833 1010 Result Diagrams: 05/19/19 03:55 05/19/19 10:39 Additional Labs: Accuchecks 05/19/19 05/19/19 05/19/19 20:32 16:11 10:54 POC Glucose 214 H 118 H 107 05/19/19 05:54 POC Glucose 141 H EKG Reviewed by me: Yes (Tele SR) Hospitalist ROS - Review of Systems Respiratory: denies: cough, dry, shortness of breath, hemoptysis, SOB with excertion, pleuritic pain, sputum, wheezing, other Cardiovascular: denies: chest pain, palpitations, orthopnea, paroxysmal noc. dyspnea, edema, light headedness, other - Medication Medications: Active Medications Generic Name Dose Route Start Last Admin Trade Name Freq PRN Reason Stop Dose Admin Acetaminophen 650 mg 05/16/19 10:30 05/19/19 16:12 Tylenol PO 650 mg Q4H PRN Administration Headache/Fever/Mild Pain (1-3) Aspirin 81 mg 05/17/19 09:00 05/19/19 05:30 Ecotrin PO 81 mg DAILY [facility] Administration Atorvastatin Calcium 40 mg 05/16/19 21:00 05/19/19 20:32 Lipitor PO 40 mg HS [facility] Administration Carvedilol 3.125 mg 05/17/19 09:00 05/19/19 20:32 Coreg PO 3.125 mg BID [facility] Administration Famotidine 20 mg 05/16/19 21:00 05/19/19 20:32 Pepcid PO 20 mg BID [facility] Administration Folic Acid 1 mg 05/17/19 09:00 05/19/19 05:31 Folvite PO 1 mg DAILY [facility] Administration Insulin Glargine 50 units/ 0.5 mls @ 0 mls/hr 05/18/19 21:00 05/19/19 20:32 Miscellaneous Medication SC 0.5 mls HS [facility] Administration Lisinopril 5 mg 05/16/19 21:00 05/19/19 20:32 Zestril PO 5 mg BID [facility] Administration Multivitamins 1 tab 05/17/19 09:00 05/19/19 05:31 Theragran PO 1 tab DAILY [facility] Administration Senna/Docusate Sodium 1 tab 05/16/19 21:00 05/19/19 20:32 Senokot S PO 1 tab BID [facility] Administration Sodium Chloride 10 ml 05/16/19 10:30 05/17/19 08:30 Flush - Normal Saline IVF 10 ml PRN PRN Administration Saline Flush Thiamine HCl 100 mg 05/17/19 09:00 05/19/19 05:31 Thiamine PO 100 mg DAILY [facility] Administration - Exam General Appearance: NAD Neck: supple, no JVD Heart: RRR, no gallops Respiratory: CTAB, no rales Gastrointestinal: soft, non-tender, normal bowel sounds Extremities: no edema Hosp A/P - Plan DVT proph w/SCDs Acute systolic/diastolic HF Exacerbation LLE DVT - on Lovenox NSTEMI Abn Stress test/3 V CAD DM2 HTN HLD Mild intermittent Asthma Tobacco dep Alcohol dep CKD 2 PLAN: Cont ASA Cont ACEI/BB Cont Statins Cont sliding scale Cont other meds AM labs Eval for possible CABG
[2019-05-20] MEDS: Senokot S 8.6-50 MG TAB PO SCH (08:12)
[2019-05-20] MEDS: Thiamine 100 MG TAB PO SCH (08:13)
[2019-05-20] MEDS: Famotidine 20 MG TAB PO SCH (08:13)
[2019-05-20] MEDS: Lisinopril 5 MG TAB PO SCH (08:13)
[2019-05-20] MEDS: Aspirin 81 mg Enteric Coated Tablet PO SCH (08:13)
[2019-05-20] MEDS: Multivit, Therapeutic 1 TAB PO SCH (08:13)
[2019-05-20] MEDS: Folic Acid 1 MG TAB PO SCH (08:13)
[2019-05-20] MEDS: Carvedilol 3.125 MG TAB PO SCH (08:13)
[2019-05-20] MEDS ORDERED: Apixaban 5 MG TAB PO SCH ×2 (13:30→21:00)
--- NOTE | 2019-05-20 14:59 | PRG ---
DATE OF SERVICE: 05/20/2019 SUBJECTIVE: Mr. Pastor is doing well. No current complaints. No chest pain or pressure. His shortness of breath is back to baseline. OBJECTIVE: GENERAL: Patient is a pleasant male who is in no acute distress. The patient appears their stated age. VITAL SIGNS: Blood pressure 140/82, pulse 72, temperature 97.7. NEUROLOGIC: The patient is alert and oriented x3 with no focal neurologic deficits. HEENT: Sclerae without icterus. Mouth has moist mucous membranes with normal pallor. NECK: No JVD. Carotid upstroke brisk. No bruits bilaterally. LUNGS: Clear to auscultation with unlabored respirations. BACK: No scoliosis or kyphosis. CARDIAC: Regular rate and rhythm with normal S1 and S2. No S3 or S4 noted. No significant rubs, murmurs, thrills, or gallops noted throughout the precordium. PMI is not displaced. There is no parasternal heave. ABDOMEN: Soft, nontender, nondistended. No peritoneal signs present. No hepatosplenomegaly. No abnormal striae. EXTREMITIES: 2+ femoral and 2+ dorsalis pedis pulses. No cyanosis, clubbing, or edema. SKIN: No gross abnormalities. PERTINENT LABORATORY DATA: Hemoglobin 12.7. Creatinine 1.45 with GFR of 61. IMPRESSION: 1. Ischemic cardiomyopathy. 2. Left-sided deep venous thrombosis. 3. Tobacco abuse. RECOMMENDATIONS: I discussed several options with Mr. Pastor. Discussed transfer to [place] for bypass surgery versus continuing medical therapy and reassess his LVEF and potentially be a better bypass candidate per Dr. Moon. He opts to continue medical therapy and repeat echo in the next 1 to 2 months and reassess LVEF. He is currently on Coreg, aspirin, statin, and ROSALIO inhibitor therapy. We will continue. We would also recommend Eliquis 10 mg one p.o. b.i.d. for seven days and 5 mg one p.o. b.i.d. Otherwise, from my standpoint, I have no further recommendations. Recommend close outpatient followup with us and with Elmira Wilkinson PA-C, in 1 to 2 weeks. Job ID: [id number]
[2019-05-20 15:43] VITALS: BP 135/80; TEMP 98.1
--- NOTE | 2019-05-20 21:17 | DIS ---
DATE OF ADMISSION: 05/15/2019 DATE OF DISCHARGE: 05/20/2019 DISCHARGE DISPOSITION: Home. FOLLOWUP: 1. Follow up with primary care physician, Dr. Chinmay Ruiz in 1 week. 2. Follow up with Dr. Jo in 2 to 3 weeks. 3. Outpatient cardiac rehabilitation. ALLERGIES: NO KNOWN DRUG ALLERGIES. DISCHARGE MEDICATIONS: 1. Aspirin 81 mg daily. 2. Eliquis 10 mg b.i.d. for 1 week, then 5 mg b.i.d. for DVT. 3. Lipitor 40 mg at bedtime. 4. Lantus 70 units at bedtime. 5. Metformin 850 mg b.i.d. 6. Sublingual nitroglycerin as needed. 7. Coreg 3.125 mg b.i.d. 8. Lisinopril 5 mg b.i.d. 9. Lasix as needed. 10. Multivitamin. 11. Thiamine. 12. Folic acid. The patient was seen and examined on the day of discharge. Denies any new complaints. BRIEF HOSPITAL COURSE: The patient is a 54-year-old male with hypertension and diabetes mellitus type 2, presented to the hospital with left leg pain. In the emergency room, he was found to have shortness of breath. His troponin in the emergency room maximum was 0.167 with CK-MB of 4.6. Left lower extremity Doppler was performed that was positive for DVT in the left lower extremity. CT angiogram of the chest showed bilateral pleural effusion. He was monitored in the intermediate care unit. His echocardiogram showed ejection fraction of 20% to 25% with diastolic dysfunction and akinetic motion of the anterior wall of the left ventricle. He was evaluated by Cardiology as well as Pulmonary. He initially declined cardiac catheterization. A stress test was performed that showed large fixed defect involving the apex, inferior wall and the septum without any evidence of reversible ischemia. It showed diffuse hypokinesis. He then agreed for the cardiac catheterization that showed severe multivessel disease. He had 99% stenosis in the proximal LAD, 70% stenosis in the mid circumflex, 100% stenosis in the proximal RCA, and 70% stenosis of the ramus. He had collaterals from the third obtuse marginal to the distal LAD and collateral from the distal circumflex to the first RPL. He was evaluated by Dr. Ki Moon for consideration for CABG. Dr. Moon recommended repeat echocardiogram in a couple of months. He has been started on Eliquis for DVT. He was placed on Lovenox 1 mg per kg for DVT during this hospitalization. Lifestyle modification was extensively emphasized. LifeVest has been arranged. He has been cleared by consultants for discharge. FINAL DIAGNOSES: 1. Acute systolic/diastolic heart failure exacerbation. 2. [id number] myocardial infarction. 3. Left lower extremity deep venous thrombosis. 4. Abnormal stress test. 5. Three-vessel coronary artery disease. 6. Hypertension. 7. Diabetes mellitus type 2. 8. Hyperlipidemia. 9. Mild intermittent asthma. 10. Tobacco dependence. The patient was counseled. 11. Alcohol dependence. 12. Chronic kidney disease stage 2. SIGNIFICANT LABS: BNP 1248. Fasting lipid profile showed triglyceride 121, cholesterol 207, LDL 125, and HDL 58. Creatinine yesterday was 1.45. A repeat basic metabolic profile after 1 week is recommended. Primary care physician advised to follow. TIME SPENT: Total time coordinating the discharge of this patient was 37 minutes. Job ID: [id number]
== END 2019-05-20 18:05 | disposition home or self-care (01) | DRG 280 ==
LOC: ERS 10:49 → IMCU/EMU 14:17 → 2NO 05-17 16:08
PROVIDERS: ADMIT Internal Medicine; ATTEND Internal Medicine
PROC: 4A023N7 Measurement of Cardiac Sampling and Pressure, Left Heart, Percutaneous Approach (ICD-10-PCS; principal; 2019-05-19)
PROC: B2111ZZ Fluoroscopy of Multiple Coronary Arteries using Low Osmolar Contrast (ICD-10-PCS; 2019-05-19)
PROC: B2151ZZ Fluoroscopy of Left Heart using Low Osmolar Contrast (ICD-10-PCS; 2019-05-19)
DX: I82.4Z2 Acute embolism and thrombosis of unspecified deep veins of left distal lower extremity (principal); I21.4 Non-ST elevation (NSTEMI) myocardial infarction; I50.43 Acute on chronic combined systolic (congestive) and diastolic (congestive) heart failure; I13.0 Hypertensive heart and chronic kidney disease with heart failure and stage 1 through stage 4 chronic kidney disease, or unspecified chronic kidney disease; F17.210 Nicotine dependence, cigarettes, uncomplicated; E78.5 Hyperlipidemia, unspecified; N18.2 Chronic kidney disease, stage 2 (mild); E11.22 Type 2 diabetes mellitus with diabetic chronic kidney disease; F10.20 Alcohol dependence, uncomplicated; I25.10 Atherosclerotic heart disease of native coronary artery without angina pectoris; I25.5 Ischemic cardiomyopathy; J45.20 Mild intermittent asthma, uncomplicated
CPT/HCPCS: 36415; 36416; 71045; 71275; 78452; 80048; 80053; 80061; 82550; 82553; 83690; 83735; 83880; 84484; 85014; 85018; 85025; 85049; 90471; 90686; 93005; 93017; 93306; 93458; 93798; 94640; 94760; 96372; 99152; A9500; C1769; G0008; J1644; J1650; J1815; J1940; J2001; J2250; J2785; J3010; J7620; Q9966; Q9967

== ENCOUNTER 2022-06-01 12:42 | Emergency (ER) | payer SELFPAY ==
[2022-06-01 13:51] LABS: #Eosinphils 0.1 thou/uL (0.0-0.7); #Monocytes 0.8 thou/uL (0.11-0.59); #Neutrophils 7.2 thou/uL (1.40-6.50); %Basophils 0.2 % (0.0-1.0); %Lymphocytes 19.5 % (21.0-51.0); %Monocytes 8.3 % (0.0-10.0); Hemoglobin 13.3 g/dL (14.0-18.0); Mean Corpuscular HGB CONC 30.8 g/dL (32.0-36.0); Mean Corpuscular Hemoglobin 27.2 pg (27.0-31.0); Mean Corpuscular Volume 88.3 fl (78.0-98.0); Mean Platelet Volume 12.5 fL (7.4-10.4); Platelet Count 152 10x3/uL (130-400); RBC Distribution Width 15.6 % (11.5-14.5); White Blood Cell (WBC) Count 10.1 10x3/uL (4.8-10.8)
[2022-06-01 14:21] LABS: ALT (SGPT) 23 U/L (8-55); AST (SGOT) 20 U/L (5-34); Albumin 3.2 g/dL (3.5-5.0); Alkaline Phosphatase 52 U/L (40-110); Anion Gap 16 mmol/L (10-20); BUN (Urea Nitrogen) 14 mg/dL (8.4-25.7); Bilirubin, Total 0.3 mg/dL (0.2-1.2); Calc. Creatinine Clearance 0 mL/min (70-130); Calcium 9.3 mg/dL (7.8-10.44); Carbon Dioxide 25 mmol/L (22-29); Chloride 103 mmol/L (98-107); Estimated GFR 50; Globulin 3.7 g/dL (2.4-3.5); Glucose 309 mg/dL (70-105); Potassium 4.5 mmol/L (3.5-5.1); Protein, Total 6.9 g/dL (6.0-8.3); Sodium 139 mmol/L (136-145)
== END 2022-06-01 15:25 | disposition home or self-care (01) ==
LOC: ERS 12:42
DX: R55 Syncope and collapse (principal); I13.0 Hypertensive heart and chronic kidney disease with heart failure and stage 1 through stage 4 chronic kidney disease, or unspecified chronic kidney disease; E11.22 Type 2 diabetes mellitus with diabetic chronic kidney disease; N18.9 Chronic kidney disease, unspecified; I50.9 Heart failure, unspecified; J45.909 Unspecified asthma, uncomplicated; E78.5 Hyperlipidemia, unspecified; Z79.82 Long term (current) use of aspirin; Z79.84 Long term (current) use of oral hypoglycemic drugs; F17.210 Nicotine dependence, cigarettes, uncomplicated; Z79.899 Other long term (current) drug therapy
CPT/HCPCS: 36415; 71045; 80053; 83880; 84484; 85025; 93005; 96360